=== PATIENT | male | born 1985 | race Two or more races ===

== ENCOUNTER 2020-08-04 08:42 | Emergency (ER) | payer MEDICAID ==
[~2020-08-04] VITALS: Ht 175.3 cm; Wt 101.6 kg
[~2020-08-04 08:42] MED LIST: GABA300C10 PO; GABAPENTIN; OMEP20CA20 PO; OMEPRAZOLE; PROP20TA PO; PROPRANOLOL
[2020-08-04] MEDS ORDERED: LORazepam 1MG TABLET ONE (10:03)
--- NOTE | 2020-08-04 10:05 | NUR ---
report recived. pt in bed admin meds and water.
--- NOTE | 2020-08-04 10:08 | NUR ---
pt asked if we were going to check for cancer then pointed to a 1 cm closed healed laseration on his left knee.
[2020-08-04] MEDS ORDERED: LORazepam 1MG TABLET PO ONE (10:30)
[2020-08-04 10:44] VITALS: BP 120/70
--- NOTE | 2020-08-04 10:46 | NUR ---
pt dc home. walked out self with steady gait. no iv. if s&s worsen return to the ER.
== END 2020-08-04 10:54 | disposition home or self-care (01) ==
LOC: ED 09:51
DX: S80.212A Abrasion, left knee, initial encounter (principal); F10.129 Alcohol abuse with intoxication, unspecified; X58.XXXA Exposure to other specified factors, initial encounter; Y93.89 Activity, other specified; Y92.89 Other specified places as the place of occurrence of the external cause; Y99.8 Other external cause status; Y90.9 Presence of alcohol in blood, level not specified
CPT/HCPCS: 99283

== ENCOUNTER 2020-12-19 09:02 | Emergency (ER) | payer MEDICAID ==
[~2020-12-19] VITALS: Ht 175.3 cm; Wt 80.0 kg
--- NOTE | 2020-12-19 09:14 | NUR ---
PT ALOK FROM [facility] FOR C/O ETOH & DETOX. PT STATES HE WANTS TO QUIT DRINKING. PT LAST DRRANK 12 HOURS GIRL FRIDAY. PT AMBULATORY TO ROOM, PT GIVEN A SHOWER. CHANGED INTO GOWN. ALL MONITORS IN PLACE.
--- NOTE | 2020-12-19 09:30 | NUR ---
PA AT BS
--- NOTE | 2020-12-19 09:55 | NUR ---
PT MEDICATED PER [facility]
[2020-12-19] MEDS ORDERED: SODIUM CHLORIDE 0.9% 1,000ML IVBOLUS ONE (10:00)
[2020-12-19] MEDS ORDERED: THIAMINE 100MG TABLET PO ONE (10:00)
[2020-12-19 10:10] LABS: MEAN CORPUSCULAR HEMOGLOBIN 30.4 pg (27.5-34.5); MEAN CORPUSCULAR HGB CONC 34.3 g/dL (33.2-36.2); MEAN PLATELET VOLUME 6.7 fL (7.4-10.4); PLATELET COUNT 104 x10^3/uL (130-400); RED BLOOD COUNT 5.55 x10^6/uL (4.38-5.82); RED CELL DISTRIBUTION WIDTH 16.4 % (9.4-14.8)
--- NOTE | 2020-12-19 10:14 | NUR ---
PT LAYING ON GUILHERME BECK/MODESTO. CALL LIGHT WITHIN REACH. NO NEEDS AT THIS TIME
[2020-12-19 10:22] LABS: ALBUMIN 3.7 g/dL (3.4-5.0); ANION GAP 9 mmol/L (5-15); CALCIUM 8.2 mg/dL (8.5-10.1); CHLORIDE 103 mmol/L (98-107)
[2020-12-19] MEDS ORDERED: LORazepam 2 MG/ML, 1ML ONE (10:23)
[2020-12-19 10:28] LABS: ALANINE AMINOTRANSFERASE 76 U/L (12-78); ALKALINE PHOSPHATASE 76 U/L (45-117); BILIRUBIN,TOTAL 0.4 mg/dL (0.2-1.0); CREATININE 0.89 mg/dL (0.7-1.3); TOTAL PROTEIN 7.7 g/dL (6.4-8.2)
[2020-12-19] MEDS ORDERED: LORazepam 2 MG/ML, 1ML IVPush ONE (10:30)
[2020-12-19 10:44] LABS: ANISOCYTOSIS 1+; LYMPH#(MANUAL) 1.31 x10^3/uL (1-3.4); LYMPHS% (MANUAL) 45 % (22-44); MONOS#(MANUAL) 0.41 x10^3/uL (0.3-2.7); MONOS% (MANUAL) 14 % (2-9); SEG#(MANUAL) 1.19 x10^3/uL (1.8-6.8); SEGS% (MANUAL) 41 % (42-75)
[2020-12-19 10:45] LABS: <PLATELET ESTIMATE> DECREASED; <PLT MORPHOLOGY> NORMAL PLT MORPH
[2020-12-19 11:42] VITALS: BP 150/102
--- NOTE | 2020-12-19 11:42 | NUR ---
PT SLEEPING ON GURNEY, RESPIRATIONS EVEN AND UNLABORED. NADN/VSS. CALL LIGHT WITHIN REACH
--- NOTE | 2020-12-19 12:36 | NUR ---
PT AMBULATORY TO BR WITH UPRIGHT STEADY GAIT
--- NOTE | 2020-12-19 12:40 | NUR ---
ERP AT BS
--- NOTE | 2020-12-19 13:14 | NUR ---
Patient given discharge instructions and they have confirmed that they understand the instructions. Patient ambulatory with steady gait.
== END 2020-12-19 13:15 | disposition home or self-care (01) ==
LOC: ED 12:05
DX: F10.220 Alcohol dependence with intoxication, uncomplicated (principal); Y90.0 Blood alcohol level of less than 20 mg/100 ml
CPT/HCPCS: 36415; 80053; 80320; 85025; 96361; 96374; 99283; J2060; J7030; G0480